=== PATIENT | male | born 1985 | race Two or more races ===

== ENCOUNTER 2023-02-05 10:59 | Inpatient (IN) | payer OTHER ==
[~2023-02-05] VITALS: Ht 167.6 cm; Wt 83.9 kg
--- NOTE | 2023-02-05 11:25 | NUR ---
PACIENTE ALERTA Y ORIENTADO X 3 CON CELULITIS EN PIERNA IZQ DESDE EL VIERNES DE LA SEMANA PASADA. SE OBSERVA AREA CON EDEMA, ERITEMA Y CALIENTE AL TACTO.
[2023-02-05] MEDS ORDERED: BACTRIM 400-801 EACH (11:28)
--- NOTE | 2023-02-05 12:34 | NUR ---
PTE EVALUADO POR Y DR.ANGEL DIMAS FINE QUIENES INDICAN TX, PTE REFIERE ENTENDER Y ACEPTAR. SE ADMINISTRAN MEDICAMENTOS MOSES ORDEN MEDICA Y SIGUIENDO MEDIDAS ASEPTICAS. SE HACE WOUND CARE CON DR.ANGEL DIMAS FINE Y ENFERMERA DE SKIN TEAM. PTE CON PARCHO LIMPIO Y SECO EN AREA AFECTADA PIERNA IZQUIERDA. SE NOTIFICAN XRAY PENDIENTES. PTE EN AREA DE OBSERVACION.
[2023-02-05 12:37] LABS: HEMATOCRIT 43.1 % (39.0-48.0); HEMOGLOBIN 14.9 g/dL (13-16.00); MEAN CELL VOLUME 83.3 fL (80.0-100.00); MEAN CORPUSCULAR HEMOGLOBIN 28.8 pg (27.00-32.0); MEAN CORPUSCULAR HGB CONC 34.6 g/dl (32.0-36.0); PLATELET COUNT 287 K/uL (150-450); RED BLOOD COUNT 5.17 M/uL (4.00-6.00); RED CELL DISTRIBUTION WIDTH 13.6 % (11.5-14.5)
[2023-02-05 12:53] LABS: PARTIAL THROMBOPLASTIN TIME 34.7 SECONDS (22.0-34.0); PROTHROMBIN TIME 10.5 SECONDS (9.0-11.5)
[2023-02-05 12:55] LABS: ERYTHROCYTE SEDIMENTATION RATE 42 mm/hr
[2023-02-05 13:15] LABS: CREATININE SERUM 1.17 mg/dL (0.70-1.30); GFR 69.4; POTASSIUM 3.67 mEq/L (3.5-5.1)
[2023-02-05 13:16] LABS: C-REACTIVE PROTEIN 8.19 MG/DL (0.00-0.29)
[2023-02-05 15:15] LABS: URINE APPEARANCE Clear; URINE BILIRRUBIN Negative (NEGATIVE); URINE BLOOD Negative; URINE COLOR Yellow; URINE GLUCOSE Negative (NEGATIVE); URINE LEUKOCYTE Negative; URINE NITRATE Negative; URINE PROTEIN Negative (NEGATIVE)
[2023-02-05 15:27] LABS: URINE BACTERIA 1.2 uL (0.0-1933); URINE EPITHELIAL CELLS 0.4 uL (0.0-38.8); URINE RBC 1.1 uL (0.0-20.8); URINE WBC 0.9 uL (0.0-23.2)
[2023-02-06 08:10] LABS: BILIRUBIN TOTAL 0.52 mg/dL (0.3-1.2); BILIRUBIN,CONJUGATED 0.15 mg/dL (0.0-0.2); BILIRUBIN,UNCONJUGATED 0.37 mg/dL (0.0-0.6); CALCIUM 8.2 mg/dL (8.5-10.1); CHOL HDL RATIO 2.9 (0-5.0); CREATININE SERUM 0.99 mg/dL (0.70-1.30); GFR 84.16; GLOBULINA 3.1 G/DL (2.4-3.5); POTASSIUM 4.38 mEq/L (3.5-5.1); TOTAL PROTEIN 6.1 gm/dL (6.4-8.2)
[2023-02-06 08:16] LABS: HEMATOCRIT 40.3 % (39.0-48.0); HEMOGLOBIN 13.2 g/dL (13-16.00); MEAN CELL VOLUME 84.1 fL (80.0-100.00); MEAN CORPUSCULAR HEMOGLOBIN 27.6 pg (27.00-32.0); MEAN CORPUSCULAR HGB CONC 32.8 g/dl (32.0-36.0); PLATELET COUNT 282 K/uL (150-450); RED CELL DISTRIBUTION WIDTH 13.4 % (11.5-14.5)
[2023-02-06 08:23] LABS: C-REACTIVE PROTEIN 7.43 MG/DL (0.00-0.29)
[2023-02-06 09:05] LABS: PH,URINE 5.5 (5.0-8.0); URINE APPEARANCE Clear; URINE BILIRRUBIN Negative (NEGATIVE); URINE BLOOD Negative; URINE COLOR Yellow; URINE GLUCOSE Negative (NEGATIVE); URINE LEUKOCYTE Negative; URINE NITRATE Negative; URINE PROTEIN Negative (NEGATIVE)
[2023-02-06 09:09] LABS: URINE EPITHELIAL CELLS 1.8 uL (0.0-38.8)
[2023-02-06 09:24] LABS: URINE BACTERIA 3.7 uL (0.0-1933); URINE RBC 1.5 uL (0.0-20.8); URINE WBC 0.9 uL (0.0-23.2)
[2023-02-06 10:22] LABS: ERYTHROCYTE SEDIMENTATION RATE 50 mm/hr
[2023-02-07 11:25] LABS: INR 0.97; PARTIAL THROMBOPLASTIN TIME 35.4 SECONDS (22.0-34.0); PROTHROMBIN TIME 10.2 SECONDS (9.0-11.5)
== END 2023-02-08 17:09 | disposition home or self-care (01) | DRG 603 ==
LOC: ER 10:59 → SURH 19:05 → SEC-K 19:05 → SURH 19:52
PROVIDERS: General Practice; ADMIT Specialist; ATTEND Specialist
PROC: 0J9P0ZZ Drainage of Left Lower Leg Subcutaneous Tissue and Fascia, Open Approach (ICD-10-PCS; principal; 2023-02-05)
PROC: B54CZZZ Ultrasonography of Left Lower Extremity Veins (ICD-10-PCS; 2023-02-05)
PROC: B44GZZZ Ultrasonography of Left Lower Extremity Arteries (ICD-10-PCS; 2023-02-05)
PROC: BL31ZZZ Magnetic Resonance Imaging (MRI) of Lower Extremity Connective Tissue (ICD-10-PCS; 2023-02-07)
DX: L02.416 Cutaneous abscess of left lower limb (principal); L03.116 Cellulitis of left lower limb; B95.62 Methicillin resistant Staphylococcus aureus infection as the cause of diseases classified elsewhere; R60.0 Localized edema
CPT/HCPCS: 73725

== ENCOUNTER 2023-02-14 14:00 | Inpatient (IN) | payer OTHER ==
[~2023-02-14] VITALS: Ht 172.7 cm; Wt 81.6 kg
[~2023-02-14 14:00] MED LIST: BACTRIM 400-801 EACH
[2023-02-14 16:01] LABS: HEMATOCRIT 42.8 % (39.0-48.0); HEMOGLOBIN 14.5 g/dL (13-16.00); MEAN CELL VOLUME 83.7 fL (80.0-100.00); MEAN CORPUSCULAR HEMOGLOBIN 28.4 pg (27.00-32.0); MEAN CORPUSCULAR HGB CONC 33.9 g/dl (32.0-36.0); PLATELET COUNT 352 K/uL (150-450); RED BLOOD COUNT 5.11 M/uL (4.00-6.00); RED CELL DISTRIBUTION WIDTH 13.6 % (11.5-14.5)
[2023-02-14 16:22] LABS: CALCIUM 8.8 mg/dL (8.5-10.1); CREATININE SERUM 0.82 mg/dL (0.70-1.30); GFR 104.59; POTASSIUM 3.95 mEq/L (3.5-5.1)
[2023-02-14 20:25] LABS: INR 0.96; PARTIAL THROMBOPLASTIN TIME 32.3 SECONDS (22.0-34.0); PROTHROMBIN TIME 10.1 SECONDS (9.0-11.5)
[2023-02-14 21:14] LABS: URINE APPEARANCE Clear; URINE BILIRRUBIN Negative (NEGATIVE); URINE BLOOD Negative; URINE COLOR Yellow; URINE LEUKOCYTE Negative; URINE NITRATE Negative; URINE PROTEIN Negative (NEGATIVE); URINE UROBILINOGEN 0.2 E.U./dl
[2023-02-14 21:27] LABS: URINE BACTERIA 1.2 uL (0.0-1933); URINE EPITHELIAL CELLS 0.7 uL (0.0-38.8); URINE GLUCOSE 500 MG/DL (NEGATIVE); URINE RBC 0.5 uL (0.0-20.8)
[2023-02-16 07:15] LABS: HEMATOCRIT 41.2 % (39.0-48.0); HEMOGLOBIN 13.7 g/dL (13-16.00); MEAN CELL VOLUME 84.4 fL (80.0-100.00); MEAN CORPUSCULAR HEMOGLOBIN 28.1 pg (27.00-32.0); MEAN CORPUSCULAR HGB CONC 33.3 g/dl (32.0-36.0); PLATELET COUNT 314 K/uL (150-450); RED BLOOD COUNT 4.88 M/uL (4.00-6.00); RED CELL DISTRIBUTION WIDTH 13.5 % (11.5-14.5)
[2023-02-16 07:22] LABS: ERYTHROCYTE SEDIMENTATION RATE 30 mm/hr
[2023-02-16 08:02] LABS: ALBUMIN 3.1 gm/dL (3.4-5.0); BILIRUBIN TOTAL 0.31 mg/dL (0.3-1.2); CALCIUM 8.9 mg/dL (8.5-10.1); CREATININE SERUM 0.95 mg/dL (0.70-1.30); GFR 87.81; GLOBULINA 3.4 G/DL (2.4-3.5); POTASSIUM 4.25 mEq/L (3.5-5.1); TOTAL PROTEIN 6.5 gm/dL (6.4-8.2)
[2023-02-16 08:03] LABS: C-REACTIVE PROTEIN 1.52 MG/DL (0.00-0.29)
[2023-02-17 02:48] LABS: URINE APPEARANCE Clear; URINE BILIRRUBIN Negative (NEGATIVE); URINE BLOOD Negative; URINE COLOR Yellow; URINE GLUCOSE Negative (NEGATIVE); URINE LEUKOCYTE Negative; URINE NITRATE Negative; URINE PROTEIN Negative (NEGATIVE); URINE UROBILINOGEN 0.2 E.U./dl
[2023-02-17 03:08] LABS: URINE BACTERIA 1.2 uL (0.0-1933); URINE EPITHELIAL CELLS 0.3 uL (0.0-38.8); URINE RBC 0.1 uL (0.0-20.8); URINE WBC 1.2 uL (0.0-23.2)
== END 2023-02-18 15:34 | disposition home or self-care (01) | DRG 603 ==
LOC: ER 14:00 → MEDI 19:14
PROVIDERS: Emergency Medicine; General Practice; Specialist; Student in an Organized Health Care Education/Training Program; ADMIT Specialist; ATTEND Specialist
PROC: BL31ZZZ Magnetic Resonance Imaging (MRI) of Lower Extremity Connective Tissue (ICD-10-PCS; principal; 2023-02-16)
PROC: BL31YZZ Magnetic Resonance Imaging (MRI) of Lower Extremity Connective Tissue using Other Contrast (ICD-10-PCS; 2023-02-16)
DX: L02.416 Cutaneous abscess of left lower limb (principal); L03.116 Cellulitis of left lower limb; B95.61 Methicillin susceptible Staphylococcus aureus infection as the cause of diseases classified elsewhere
CPT/HCPCS: 73725